=== PATIENT | female | born 1975 | race Asian ===

== ENCOUNTER → 2019-05-27 10:33 | Outpatient (CLI) | payer OTHER, SELFPAY ==
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
== END ==
PROVIDERS: PCP Internal Medicine Geriatric Medicine; Referring Provider Physical Medicine & Rehabilitation; Visit Provider Physical Medicine & Rehabilitation
DX: M51.16 Intervertebral disc disorders with radiculopathy, lumbar region (principal); M47.26 Other spondylosis with radiculopathy, lumbar region; M48.061 Spinal stenosis, lumbar region without neurogenic claudication
CPT/HCPCS: 72148

== ENCOUNTER → 2019-10-09 09:17 | Outpatient (CLI) | payer OTHER, SELFPAY ==
[2019-10-09 23:32] LABS: COVID19 Sendout Not Detected (Not Detect)
== END ==
PROVIDERS: PCP Internal Medicine Geriatric Medicine; Visit Provider Physician Assistant
DX: Z11.59 Encounter for screening for other viral diseases (principal)
CPT/HCPCS: 87635

== ENCOUNTER 2019-10-12 13:11 | Outpatient (CLI) | payer OTHER, SELFPAY ==
[2019-10-12] VITALS (10 sets, daily range): BP systolic 128–151; BP diastolic 81–98; PULSE 77–90; RESP 14–16; TEMP 36.4; O2SAT 97–100
--- NOTE | 2019-10-12 13:12 | DI.RAD.S_ITS ---
PROCEDURE: PAIN L/S FACET INJ/BLK 1ST AVTAR COMPARISON: None. INDICATIONS: SPONDYLOSIS FINDINGS: Needle tip localization has been performed bilaterally for L4-5 and L5-S1 facet joint steroid injection. IMPRESSION: Successful localization for facet joint steroid injections, 4 total, as discussed. Dictated by: Alejandro Connors M.D. on 10/12/2019 at 16:21 Approved by: Alejandro Connors M.D. on 10/12/2019 at 16:22
[2019-10-12] MEDS: MIDAZOLAM 5 MG/5 ML VIAL IV (14:01)
[2019-10-12] MEDS: fentaNYL 100 MCG/2 ML INJ 50 MCG IV (14:01)
[2019-10-12] MEDS: IOPAMIDOL 15 ML VIAL 3 ML INJ (14:11)
[2019-10-12] MEDS: LIDOCAINE 1% 20 ML 10 ML INJ (14:11)
[2019-10-12] MEDS: BETAMETHASONE 30 MG/5 ML MDV 12 MG INJ (14:12)
[2019-10-12] MEDS: BUPIVACAINE 0.5% (PF) VIAL 2 ML INJ (14:12)
--- NOTE | 2019-10-12 14:31 | P.PCN_ITS ---
Date/Time/Diagnoses Date of procedure: 10/12/19 Time of procedure: 14:31 Pre-procedure diagnosis: 1. FACET ARTHROPATHY 2. AXIAL LBP 3. MULTILEVEL DDD Post-procedure diagnosis: same Procedure Notes Procedure: 1. FLUOROSCOPICALLY GUIDED CONTRAST CONTROLLED FACET JOINT INJECTIONS BILATERAL L4/5, L5/S1 Indications: Sophie is referred by Dr. Benjamin for treatment of Axial LBP Physician: Ben Carranza Total Fluoroscopy time (seconds): 11 Total sedation minutes: 24 Complications: none Procedure in detail & Post-procedure care: FINDINGS Multilevel Facet Arthropathy with Clinically significant axial LBP DESCRIPTION OF PROCEDURE Fluoroscopically guided, contrast-controlled bilateral L4/5, L5/S1 facet joint injections. Following review of allergy and review of potential side effects and complications, including, but not necessarily limited to, infection, allergic reaction, local tissue breakdown, stroke, temporary or permanent nerve injury, paralysis, and possible , the patient indicated that the patient understood and agreed to proceed. An informed consent document was signed by the patient, witnessed by a nurse, and placed in the patient's chart. Additionally, other treatment options including medications, modalities, and physical therapy were reviewed with the patient. After review of previous anaesthesic history and IV conscious sedation the patient was deemed safe to proceed with today?s procedure with IV conscious sedation as ASA class II designation. Safety time-out was performed to confirm patient ID, procedure to be performed and site of procedure. IV sedation was accomplished with a combination of 3mg of Versed and 50mcg of Fentanyl was administered by the RN after DO order, titrated to patient comfort during the course of the procedure while the patient remained responsive to all verbal commands In the prone position, following sterile prep and drape of the lumbar region, the posterior aspect of the L4/5, L5/S1 facet joints were identified fluoroscopically. The skin was anesthetized via a 25-gauge 1.5-inch needle with 1% lidocaine solution into the corresponding facet joints. At this point, a 22- gauge 3.5-inch spinal needle was atraumatically introduced and advanced under fluoroscopic guidance into the corresponding facet joints. Following negative aspiration, injections of approximately 0.2cc of Isovue 200 confirmed int erarticular placement without vascular uptake. The identical procedure was then performed at the L4/5, L5/S1 facet joints on the left. Radiological data, including multiple fluoroscopic views of the lumbosacral spine, reveal a spinal needle at the L4/5, L5/S1 facet joints bilaterally. Subsequent views show flow of contrast material both superiorly and inferiorly within the joint space without vascular or intrathecal uptake. At this point, a total of 0.5cc including a mixture of 0.25cc Marcaine and 0.25cc betamethasone was injected without complication into each of the corresponding facet joints. The patient tolerated the procedure well without signs or symptoms of complications prior to transfer to the recovery area continued monitoring without incident. The patient was then transferred to the recovery area where they were observed for an appropriate period of time after the injection. The patient reported a VAS score of 7 prior to the procedure and a post- procedure VAS of 0. POST OP INSTRUCTIONS The patient was provided a Pain Log to continue to record their response to the target-specific procedure prior to follow-up visit with their referring physician. Additionally, specific post-injection care instructions and a contact number to our office were provided if concerns arise regarding possible complications associated with the procedure are suspected.
--- NOTE | 2019-10-12 14:53 | PC.NURSE ---
1438: pt returned to pre proc room by wc, stable 1PA from wc to chair, monitoring resumed by yasmany sesay
--- NOTE | 2019-10-12 16:16 | PC.NURSE ---
Pt tolerated procedure well. Versed and Fentanyl given my RN Dayday, all other meds administered by Dr. Carranza. VSS upon transfer to [facility]ELLA Aden in post procedure room.
== END 2019-10-12 15:24 | disposition home or self-care (01) ==
PROVIDERS: PCP Internal Medicine Geriatric Medicine; Referring Provider Internal Medicine Geriatric Medicine; Visit Provider Physical Medicine & Rehabilitation
DX: M47.816 Spondylosis without myelopathy or radiculopathy, lumbar region (principal); M47.817 Spondylosis without myelopathy or radiculopathy, lumbosacral region; M54.5 Low back pain; M51.36 Other intervertebral disc degeneration, lumbar region; M51.37 Other intervertebral disc degeneration, lumbosacral region
CPT/HCPCS: 64493; 64494; 99152; J0702; J2250; J3010

== ENCOUNTER → 2020-06-24 13:16 | Outpatient (CLI) | payer OTHER, SELFPAY ==
[2020-06-24 15:15] LABS: COVID19 -Nasal RAPID Negative (Negative)
== END ==
PROVIDERS: PCP Internal Medicine Geriatric Medicine; Visit Provider Physical Medicine & Rehabilitation
DX: Z20.822 Contact with and (suspected) exposure to COVID-19 (principal)
CPT/HCPCS: 87635; C9803

== ENCOUNTER 2020-06-25 08:55 | Outpatient (CLI) | payer OTHER, SELFPAY ==
[2020-06-25] VITALS (9 sets, daily range): BP systolic 125–157; BP diastolic 61–86; PULSE 78–85; RESP 14–20; TEMP 36.1; O2SAT 99–100
--- NOTE | 2020-06-25 09:02 | DI.RAD.S_ITS ---
PROCEDURE: PAIN C/T INTERLAMINAR INJECT INDICATIONS: SPONDYLOSIS COMPARISON: [facility], CR, XR THORACIC SPINE 3 VIEWS, 05/30/2020, 15:03. FINDINGS: Fluoroscopic spot filming was performed to verify placement of a spinal needle at the T6-T7 level, as labeled on the films. Appropriate location of the needle tip was confirmed by injection of iodinated contrast. IMPRESSION: Intraprocedural examination within normal limits. Dictated by: Sergio De Jesus M.D. on 06/25/2020 at 9:31 Approved by: Sergio De Jesus M.D. on 06/25/2020 at 9:32
[2020-06-25] MEDS: fentaNYL 100 MCG/2 ML INJ 50 MCG IV (09:36)
[2020-06-25] MEDS: IOPAMIDOL 15 ML VIAL 3 ML INJ (09:41)
[2020-06-25] MEDS: BUPIVACAINE 0.25% (PF) VIAL 2 ML INJ (09:41)
[2020-06-25] MEDS: DEXAMETHASONE 10 MG/ML VIAL 30 MG INJ (09:41)
[2020-06-25] MEDS: MIDAZOLAM 5 MG/5 ML VIAL IV (09:42)
--- NOTE | 2020-06-25 09:55 | PM.PROC.IR.1 ---
Date/Time/Diagnoses Date of procedure: 06/25/20 Time of procedure: 09:55 Pre-procedure diagnosis: Thoracic stenosis with HNP Post-procedure diagnosis: same Procedure Notes Procedure: Fluoroscopic guided, contrast controlled T6/7 translaminar epidural steroid injection with conscious sedation. Indications: Sophie is referred by Dr. Benjamin for treatment of thoracic DDD/DJD with radiculopathy Physician: Ben Carranza Total Fluoroscopy time (seconds): 25 Total sedation minutes: 16 Complications: none Procedure in detail & Post-procedure care: DESCRIPTION OF PROCEDURE Fluoroscopic guided, contrast controlled T8-9 translaminar epidural steroid injection with conscious sedation. Following review of allergy review potential side effects and complications, including, but not necessarily limited to, infection, allergic reaction, local tissue breakdown, temporary as well as permanent nerve injury, stroke, paralysis and possible , the patient indicated that they understood and agreed to proceed. An informed consent document was signed by the patient, witnessed by the nurse, and placed in the patient's chart. Additionally other treatment options including modalities, medications and physical therapy were reviewed with the patient. After review of previous anaesthesic history and IV conscious sedation the patient was deemed safe to proceed with today's procedure with IV conscious sedation as ASA class II designation. Safety time-out was performed to confirm patient ID, procedure to be performed and site of procedure. IV sedation was accomplished with a combination of 4mg of Versed and 50mcg of Fentanyl administered by the RN after DO order, titrated to patient comfort during the course of the procedure while the patient remained responsive to all verbal commands In the prone position, following sterile prep and drape of the thoracic region the T6/7 translaminar space was identified fluoroscopically. The skin was anesthetized via 25 gauge 1.5inch needle with 1% lidocaine solution. At this point a 22gauge epidural needle was atraumatically introduced and advanced under fluoroscopic guidance into the region of the T6/7 translaminar space depth was confirmed on lateral view. Radiographic data, including multiple fluoroscopic views of the thoracic spine, reveals spinal needle at the T6/7 translaminar space. Lateral views then showed the placement of the needle in the epidural space. Subsequent view show contrast material flowing superiorly and inferiorly in the epidural space. No vascular or intrathecal uptake is observed. At this point using loss of resistance technique with saline and the epidural space was entered. This was confirmed followed negative aspiration and injection of approximately 1.5cc of Isovue 200 showed excellent epidural flow without vascular or intrathecal uptake. At this point, 1 cc of 1% lidocaine solution was admitted as a test dose and the patient was observed for an appropriate period of time without signs or symptoms of complications, including abdominal pain, shortness of breath, bilateral upper and lower extremity weakness, nausea and vomiting, prior to steroid injection. Subsequently, 3cc or 30mg of dexamethasone was then injected without incident. The patient tolerated the procedure well without signs of complications and subsequently was transferred to the recovery room for further monitoring. The patient was then transferred to the recovery area with their observed for an appropriate time after the injection. Patient reported a VAS score of 7 prior to the procedure and post-procedure VAS of 2.
== END 2020-06-25 10:18 | disposition home or self-care (01) ==
PROVIDERS: PCP Internal Medicine Geriatric Medicine; Referring Provider Internal Medicine Geriatric Medicine; Visit Provider Physical Medicine & Rehabilitation
DX: M48.04 Spinal stenosis, thoracic region (principal); M51.14 Intervertebral disc disorders with radiculopathy, thoracic region
CPT/HCPCS: 62321; 99152; J1100; J2250; J3010

== ENCOUNTER 2022-09-10 15:26 | Outpatient (CLI) | payer OTHER, SELFPAY ==
[2022-09-10] VITALS (8 sets, daily range): BP systolic 131–156; BP diastolic 69–86; PULSE 77–87; RESP 14–22; TEMP 36.4; O2SAT 99–100
--- NOTE | 2022-09-10 15:27 | DI.RAD.S_ITS ---
PROCEDURE: PAIN SI JOINT INJECTION INDICATIONS: COCCYDYNIA COMPARISON: None. FINDINGS: Fluoroscopic spot filming was performed to verify placement of spinal needles at the sacral hiatus level(s), as labeled on the films. Appropriate location(s) of the needle tip(s) was confirmed by injection of iodinated contrast. IMPRESSION: Fluoroscopic guidance Approved by: Bj Lainez M.D. on 09/11/2022 at 10:25
[2022-09-10] MEDS: MIDAZOLAM 2 MG/2 ML VIAL IV (15:58)
[2022-09-10] MEDS: BUPIVACAINE 0.5% (PF) 10 ML VIAL 2 ML INJ (16:01)
[2022-09-10] MEDS: BETAMETHASONE 30 MG/5 ML MDV 12 MG INJ (16:01)
[2022-09-10] MEDS: IOPAMIDOL 15 ML VIAL 3 ML INJ (16:01)
--- NOTE | 2022-09-10 16:13 | PM.PROC.IR.1 ---
Date/Time/Diagnoses Date of procedure: 09/10/22 Time of procedure: 16:13 Pre-procedure diagnosis: Coccydynia Procedure Notes Procedure: Fluoroscopically guided contrast controlled Coccyx Injection Indications: Coccydynia Physician: Ben Carranza Total Fluoroscopy time (seconds): 12 Total sedation minutes: 13 Procedure in detail & Post-procedure care: DESCRIPTION OF PROCEDURE Fluoroscopic guided, contrast controlled coccyx injection Following review of allergies and review of potential side effects and complications, including, but not necessarily limited to, infection, allergic reaction, local tissue breakdown, temporary as well as permanent nerve injury, paralysis, stroke and possible , the patient indicated that they understood and agreed to proceed. An informed consent was signed by the patient, witnessed by a nurse, and placed in the patient's chart. Additionally, other treatment options including modalities, medications, and physical therapy were reviewed with the patient. After review of previous anaesthesic history and IV conscious sedation the patient was deemed safe to proceed with today?s procedure with IV conscious sedation as ASA class II designation. Safety time-out was performed to confirm patient ID, procedure to be performed and site of procedure. IV sedation was accomplished with a combination of 2mg of Versed administered by the RN after DO order, titrated to patient comfort during the course of the procedure while the patient remained responsive to all verbal commands. In the prone position following sterile prep and drape of the pelvic region, the hyper lucency on in the inferior aspect of the coccyx joint was identified fluoroscopically the skin was anesthetized be a 25 gauge 1 eventual with approximately 2cc of 1% lidocaine solution. At this point, a 22 gauge 3inch spinal needle was atraumatically introduced and advanced under fluoroscopic guidance into the inferior aspect of the left sacroiliac joint. Following negative aspiration, approximately 0.3cc of Isovue-300 was injected confirming intra-articular placement without vascular uptake. Radiographic data, including multiple fluoroscopic views of the pelvis, reveals a spinal needle in the coccyx. Subsequent view show flow contrast tear superiorly and inferiorly within the joint ligamentous complex without vascular intrathecal uptake. At this point a total of 1cc or 0.5% Marcaine was combined with 1cc of 6mg of betamethasone was injected without incident. The patient tolerated the procedure well without signs or symptoms of complications prior to transfer to the recovery area for further monitoring. The patient was then transferred to the recovery area with a bur observed for an appropriate time after the injection. The patient reverted a vas score of 7 prior to the procedure and postprocedure vas of 1. POSTOP INSTRUCTIONS The patient was provided with a pain like to continue to record the patient's response to the target specific procedure prior to the patient's follow-up visit with the referring physician. Additionally, specific post injection care instructions and a contact number to our office were provided if concerns arise regarding the possible complications associated with procedure are suspected.
== END 2022-09-10 16:32 | disposition home or self-care (01) ==
PROVIDERS: PCP Internal Medicine Geriatric Medicine; Referring Provider Physical Medicine & Rehabilitation; Visit Provider Physical Medicine & Rehabilitation
DX: M53.3 Sacrococcygeal disorders, not elsewhere classified (principal)
CPT/HCPCS: 27096; 99152; J0702; J2250

== ENCOUNTER 2023-04-20 14:39 | Outpatient (CLI) | payer OTHER, SELFPAY ==
[2023-04-20] VITALS (8 sets, daily range): BP systolic 138–168; BP diastolic 67–82; PULSE 79–89; RESP 16–20; TEMP 36.2; O2SAT 100
--- NOTE | 2023-04-20 15:00 | DI.RAD.S_ITS ---
PROCEDURE: PAIN SI JOINT INJECTION INDICATIONS: SACRAL ARTHROPATHY COMPARISON: None. FINDINGS: Fluoroscopic spot filming was performed to verify placement of spinal needles at the coccyx level(s), as labeled on the films. Appropriate location(s) of the needle tip(s) was confirmed by injection of iodinated contrast. IMPRESSION: Intraoperative fluoroscopy for coccygeal steroid injection. Dictated by: Lanny Cisse M.D. on 04/20/2023 at 23:54 Approved by: Lanny Cisse M.D. on 04/20/2023 at 23:54
--- NOTE | 2023-04-20 15:39 | PM.PROC.IR.1 ---
Date/Time/Diagnoses Date of procedure: 04/20/23 Time of procedure: 15:39 Pre-procedure diagnosis: Coccydynia Post-procedure diagnosis: same Procedure Notes Procedure: Fluoroscopically guided coccyx injection with prolotherapy Indications: Sophie is referred by Dr. Leo for Coccydynia with Ligamentous Laxity Physician: Ben Carranza Total Fluoroscopy time (seconds): 7 Total sedation minutes: 16 Complications: none Procedure in detail & Post-procedure care: Following review of allergies and review of potential side effects and complications, including, but not necessarily limited to, infection, allergic reaction, local tissue breakdown, temporary as well as permanent nerve injury, paralysis, stroke and possible , the patient indicated that they understood and agreed to proceed.? An informed consent was signed by the patient, witnessed by a nurse, and placed in the patient's chart.? Additionally, other treatment options including modalities, medications, and physical therapy were reviewed with the patient. After review of previous anaesthesic history and IV conscious sedation the patient was deemed safe to proceed with today?s procedure with IV conscious sedation as ASA class II designation. Safety time-out was performed to confirm patient ID, procedure to be performed and site of procedure. IV sedation was accomplished with a combination of 2mg of Versed administered by the RN after DO order, titrated to patient comfort during the course of the procedure while the patient remained responsive to all verbal commands. In the prone position following sterile prep and drape of the pelvic region, the hyper lucency on in the inferior aspect of the coccyx joint was identified fluoroscopically the skin was anesthetized be a 25 gauge 1.5 needle with approximately 2cc of 1% lidocaine solution.? At this point, a 25 gauge 1.5 inch needle was atraumatically introduced and advanced under fluoroscopic guidance into the inferior aspect of the coccyx joint and sacro-coccyxgeal ligament complex.? Following negative aspiration, approximately 0.3cc of Isovue-300 was injected confirming intra-ligamentous placement without vascular uptake. Radiographic data, including multiple fluoroscopic views of the pelvis, reveals a spinal needle in the coccyx. ? At this point a total of 20cc of 20% dextrose solution was injected to the sacro-coccygeal joint and ligamentous complex without incident. The patient tolerated the procedure well without signs or symptoms of complications prior to transfer to the recovery area for further monitoring. The patient was then transferred to the recovery area with a bur observed for an appropriate time after the injection.? The patient reverted a vas score of 7 prior to the procedure and postprocedure vas of 1. POSTOP INSTRUCTIONS The patient was provided with a pain like to continue to record the patient's response to the target specific procedure prior to the patient's follow-up visit with the referring physician.? Additionally, specific post injection care instructions and a contact number to our office were provided if concerns arise regarding the possible complications associated with procedure are suspected.
[2023-04-20] MEDS: MIDAZOLAM 2 MG/2 ML VIAL IV (15:44)
[2023-04-20] MEDS: DEXTROSE 50 % IN WATER 25 GM/50 ML SYRINGE TUBE (15:45)
[2023-04-20] MEDS: BUPIVACAINE 0.5% (PF) 10 ML VIAL 2 ML INJ (15:51)
[2023-04-20] MEDS: iopamidoL 15 ML VIAL 3 ML INJ (15:51)
== END 2023-04-20 16:18 | disposition home or self-care (01) ==
LOC: RAD 14:40
PROVIDERS: PCP Internal Medicine Geriatric Medicine; Referring Provider Physical Medicine & Rehabilitation; Visit Provider Physical Medicine & Rehabilitation
DX: M53.3 Sacrococcygeal disorders, not elsewhere classified (principal)
CPT/HCPCS: 27096; 77002; 99152; G0260; J2250

== ENCOUNTER 2023-06-22 15:04 | Outpatient (CLI) | payer OTHER, SELFPAY ==
[2023-06-22] VITALS (8 sets, daily range): BP systolic 120–148; BP diastolic 69–76; PULSE 85–101; RESP 14–20; TEMP 36.2; O2SAT 99–100
--- NOTE | 2023-06-22 15:30 | DI.RAD.S_ITS ---
PROCEDURE: PAIN SI JOINT INJECTION INDICATIONS: COCCYDYNIA COMPARISON: [facility], XA, PAIN SI JOINT INJECTION, 04/20/2023, 16:50. FINDINGS: Fluoroscopic spot filming was performed to verify placement of spinal needles at the sacrococcygeal junction level(s), as labeled on the films. Appropriate location(s) of the needle tip(s) was confirmed by injection of iodinated contrast. IMPRESSION: Fluoroscopic support for sacrococcygeal prolotherapy. Please see separate procedure note for further details. Dictated by: Matty Rodrigues M.D. on 06/23/2023 at 14:25 Approved by: Matty Rodrigues M.D. on 06/23/2023 at 14:26
[2023-06-22] MEDS: MIDAZOLAM 2 MG/2 ML VIAL IV (16:07)
[2023-06-22] MEDS: iopamidoL 15 ML VIAL 3 ML INJ (16:13)
[2023-06-22] MEDS: BUPIVACAINE 0.25% (PF) VIAL 5 ML INJ (16:13)
--- NOTE | 2023-06-22 16:33 | PM.PROC.IR.1 ---
Date/Time/Diagnoses Date of procedure: 06/22/23 Time of procedure: 16:33 Pre-procedure diagnosis: Coccydynia Post-procedure diagnosis: same Procedure Notes Procedure: Fluoroscopically guided coccyx injection with prolotherapy Indications: Sophie is referred by Dr. Benjamin for Coccydynia with Ligamentous Laxity Physician: Ben Carranza Total Fluoroscopy time (seconds): 9 Total sedation minutes: 22 Complications: none Procedure in detail & Post-procedure care: Following review of allergies and review of potential side effects and complications, including, but not necessarily limited to, infection, allergic reaction, local tissue breakdown, temporary as well as permanent nerve injury, paralysis, stroke and possible , the patient indicated that they understood and agreed to proceed.? An informed consent was signed by the patient, witnessed by a nurse, and placed in the patient's chart.? Additionally, other treatment options including modalities, medications, and physical therapy were reviewed with the patient. After review of previous anaesthesic history and IV conscious sedation the patient was deemed safe to proceed with today?s procedure with IV conscious sedation as ASA class II designation. Safety time-out was performed to confirm patient ID, procedure to be performed and site of procedure. IV sedation was accomplished with a combination of 2mg of Versed administered by the RN after DO order, titrated to patient comfort during the course of the procedure while the patient remained responsive to all verbal commands. In the prone position following sterile prep and drape of the pelvic region, the hyper lucency on in the inferior aspect of the coccyx joint was identified fluoroscopically the skin was anesthetized be a 25 gauge 1.5 needle with approximately 2cc of 1% lidocaine solution.? At this point, a 25 gauge 1.5 inch needle was atraumatically introduced and advanced under fluoroscopic guidance into the inferior aspect of the coccyx joint and sacro-coccyxgeal ligament complex.? Following negative aspiration, approximately 0.3cc of Isovue-300 was injected confirming intra-ligamentous placement without vascular uptake. Radiographic data, including multiple fluoroscopic views of the pelvis, reveals a spinal needle in the coccyx. ? At this point a total of 20cc of 25% dextrose solution was injected to the sacro-coccygeal joint and ligamentous complex without incident. The patient tolerated the procedure well without signs or symptoms of complications prior to transfer to the recovery area for further monitoring. The patient was then transferred to the recovery area with a bur observed for an appropriate time after the injection.? The patient reverted a vas score of 7 prior to the procedure and postprocedure vas of 1. POSTOP INSTRUCTIONS The patient was provided with a pain like to continue to record the patient's response to the target specific procedure prior to the patient's follow-up visit with the referring physician.? Additionally, specific post injection care instructions and a contact number to our office were provided if concerns arise regarding the possible complications associated with procedure are suspected.
== END 2023-06-22 16:50 | disposition home or self-care (01) ==
PROVIDERS: PCP Internal Medicine Geriatric Medicine; Referring Provider Physical Medicine & Rehabilitation; Visit Provider Physical Medicine & Rehabilitation
DX: M53.3 Sacrococcygeal disorders, not elsewhere classified (principal)
CPT/HCPCS: 27096; 99152; G0260; J2250; J3490

== ENCOUNTER → 2023-09-25 15:56 | Outpatient (CLI) | payer OTHER, SELFPAY ==
--- NOTE | 2023-09-25 15:57 | DI.RAD.S_ITS ---
PROCEDURE: XR ELBOW RT MIN 3V INDICATIONS: RIGHT ELBOW PAIN TECHNIQUE: 3 views of the elbow were acquired. COMPARISON: None. FINDINGS: Bones: No fractures or dislocations. No suspicious bony lesions. Soft tissues: No elbow joint effusion. No suspicious soft tissue calcifications. IMPRESSION: No acute bony abnormality or significant joint effusion. If symptoms persist with conservative management, consider repeat radiographs in 5-7 days or cross-sectional imaging such as CT or MRI. Approved by: Latrice Camarena M.D.,Ph.D. on 09/25/2023 at 16:18
== END ==
LOC: RAD 15:57
PROVIDERS: PCP Internal Medicine Geriatric Medicine; Referring Provider Physical Medicine & Rehabilitation; Visit Provider Physical Medicine & Rehabilitation
DX: M25.521 Pain in right elbow (principal)
CPT/HCPCS: 73080

== ENCOUNTER 2023-12-14 15:25 | Outpatient (CLI) | payer OTHER, SELFPAY ==
[2023-12-14] VITALS (8 sets, daily range): BP systolic 128–142; BP diastolic 58–86; PULSE 86–103; RESP 16–20; TEMP 36.5; O2SAT 99–100
--- NOTE | 2023-12-14 16:00 | DI.RAD.S_ITS ---
PROCEDURE: PAIN SI JOINT INJECTION INDICATIONS: SI JOINT DYSFUNCTION COMPARISON: [facility], XA, PAIN SI JOINT INJECTION, 06/22/2023, 16:13. FINDINGS: Fluoroscopic spot filming was performed to verify placement of spinal needles at the coccyx level(s), as labeled on the films. Appropriate location(s) of the needle tip(s) was confirmed by injection of iodinated contrast. IMPRESSION: Needle and contrast localization at the coccyx. Dictated by: Soo Mena M.D. on 12/15/2023 at 12:40 Approved by: Soo Mena M.D. on 12/15/2023 at 12:40
[2023-12-14] MEDS: MIDAZOLAM 2 MG/2 ML VIAL IV (16:26)
[2023-12-14] MEDS: BUPIVACAINE 0.5% (PF) 10 ML VIAL 2 ML INJ (16:30)
[2023-12-14] MEDS: iopamidoL 15 ML VIAL 3 ML INJ (16:30)
[2023-12-14] MEDS: methylPREDNISolone acetate 80 MG/ML VIAL INJ (16:31)
[2023-12-14] MEDS: DEXAMETHASONE 10 MG/ML VIAL INJ (16:40)
--- NOTE | 2023-12-14 16:52 | PM.PROC.IR.1 ---
Date/Time/Diagnoses Date of procedure: 12/14/23 Time of procedure: 16:52 Pre-procedure diagnosis: Coccydynia Procedure Notes Procedure: Fluoroscopically guided contrast controlled Coccyx Injection Indications: Coccydynia Physician: Ben Carranza Total Fluoroscopy time (seconds): 16 Total sedation minutes: 14 Procedure in detail & Post-procedure care: DESCRIPTION OF PROCEDURE Fluoroscopic guided, contrast controlled coccyx injection Following review of allergies and review of potential side effects and complications, including, but not necessarily limited to, infection, allergic reaction, local tissue breakdown, temporary as well as permanent nerve injury, paralysis, stroke and possible , the patient indicated that they understood and agreed to proceed. An informed consent was signed by the patient, witnessed by a nurse, and placed in the patient's chart. Additionally, other treatment options including modalities, medications, and physical therapy were reviewed with the patient. After review of previous anaesthesic history and IV conscious sedation the patient was deemed safe to proceed with today?s procedure with IV conscious sedation as ASA class II designation. Safety time-out was performed to confirm patient ID, procedure to be performed and site of procedure. IV sedation was accomplished with a combination of 2mg of Versed administered by the RN after DO order, titrated to patient comfort during the course of the procedure while the patient remained responsive to all verbal commands. In the prone position following sterile prep and drape of the pelvic region, the hyper lucency on in the inferior aspect of the coccyx joint was identified fluoroscopically the skin was anesthetized be a 25 gauge 1 eventual with approximately 2cc of 1% lidocaine solution. At this point, a 25 gauge 3inch spinal needle was atraumatically introduced and advanced under fluoroscopic guidance into the inferior aspect of the sacro-coccygeal joint and ligament complex. Following negative aspiration, approximately 0.3cc of Isovue-300 was injected confirming intra-articular placement without vascular uptake. Radiographic data, including multiple fluoroscopic views of the pelvis, reveals a spinal needle in the coccyx. Subsequent view show flow contrast tear superiorly and inferiorly within the joint capsule without vascular intrathecal uptake. At this point a total of 2cc or 0.5% Marcaine was combined with 1cc of 80mg of depomedrol was injected without incident. The patient tolerated the procedure well without signs or symptoms of complications prior to transfer to the recovery area for further monitoring. The patient was then transferred to the recovery area with a bur observed for an appropriate time after the injection. The patient reverted a vas score of 7 prior to the procedure and postprocedure vas of 1. POSTOP INSTRUCTIONS The patient was provided with a pain like to continue to record the patient's response to the target specific procedure prior to the patient's follow-up visit with the referring physician. Additionally, specific post injection care instructions and a contact number to our office were provided if concerns arise regarding the possible complications associated with procedure are suspected.
== END 2023-12-14 16:58 | disposition home or self-care (01) ==
LOC: RAD 15:25
PROVIDERS: PCP Internal Medicine Geriatric Medicine; Referring Provider Physical Medicine & Rehabilitation; Visit Provider Physical Medicine & Rehabilitation
DX: M53.3 Sacrococcygeal disorders, not elsewhere classified (principal)
CPT/HCPCS: 27096; 99152; J1010; J1100; J2250